=== PATIENT | male | born 1945 ===

== ENCOUNTER 2018-09-27 05:15 | Day surgery (SDC) | payer OTHER ==
[~2018-09-27 05:15] MED LIST: ASA81 MG PO; MONOPRIL PO; PRILOSEC10 MG PO
[2018-09-27] MEDS ORDERED: NEURONTIN300 MG PO (10:15)
[2018-09-27] MEDS ORDERED: ZOFRAN ODT4 MG PO (10:15)
[2018-09-27] MEDS ORDERED: MIRALAX17 GM PO (10:15)
[2018-09-27] MEDS ORDERED: ULTRAM50 MG PO (10:15)
[2018-09-27] MEDS ORDERED: TYLENOL EXTRA500 MG PO (10:15)
== END 2018-09-27 13:05 | disposition home or self-care (01) ==
LOC: CIR.AMB 05:15
DX: K40.30 Unilateral inguinal hernia, with obstruction, without gangrene, not specified as recurrent (principal); K42.9 Umbilical hernia without obstruction or gangrene